=== PATIENT | male | born 1990 | race Hispanic/Latino ===

== ENCOUNTER 2016-10-16 03:11 | Emergency (ER) | payer OTHER ==
[2016-10-16] MEDS ORDERED: Iohexol 240 (50 ml) PO ONE (03:33)
--- NOTE | 2016-10-16 03:36 | C.PDOC ---
History Of Present Illness 26 y/o male c/o sudden onset RLQ abdominal pain that began tonight. Pain began after lifting a heavy object. Denies fever, chills, weakness, numbness, dysuria , vomiting, or any other complaints. Patient has no Hx of dysuria. Time Seen by Provider: 10/16/16 03:34 Chief Complaint (Nursing): Abdominal Pain History Per: Patient History/Exam Limitations: no limitations Onset/Duration Of Symptoms: Hrs, Sudden Onset Current Symptoms Are (Timing): Still Present Severity: Mild Location Of Pain/Discomfort: RLQ Radiation Of Pain To:: None Quality Of Discomfort: "Pain" Associated Symptoms: denies: Fever, Urinary Symptoms Alleviating Factors: None Recent travel outside of the [place]: No Additional History Per: Patient Past Medical History Reviewed: Historical Data, Nursing Documentation, Vital Signs Vital Signs: Last Vital Signs Temp 98.3 F 10/16/16 03:19 Pulse 90 10/16/16 03:19 Resp 18 10/16/16 03:19 BP 125/69 10/16/16 03:19 Pulse Ox 99 10/16/16 05:42 Family History: States: Unknown Family Hx - Social History Hx Alcohol Use: Yes Hx Substance Use: No - Immunization History Hx Tetanus Toxoid Vaccination: Yes Hx Influenza Vaccination: No Hx Pneumococcal Vaccination: No Review Of Systems Except As Marked, All Systems Reviewed And Found Negative. Constitutional: Negative for: Fever, Chills Gastrointestinal: Positive for: Abdominal Pain. Negative for: Vomiting Genitourinary: Negative for: Dysuria Neurological: Negative for: Weakness, Numbness Physical Exam - Physical Exam Appears: Non-toxic, No Acute Distress Skin: Warm, Dry Head: Atraumatic, Normacephalic Chest: Symmetrical Cardiovascular: Rhythm Regular Respiratory: Normal Breath Sounds, No Rales, No Rhonchi, No Wheezing Gastrointestinal/Abdominal: Soft, Tenderness (Localized tenderness to the RLQ), No Guarding, No Rebound Back: Normal Inspection, No CVA Tenderness Neurological/Psych: Oriented x3, Normal Speech, Normal Cognition ED Course And Treatment - Laboratory Results Result Diagrams: 10/16/16 03:45 10/16/16 03:45 O2 Sat by Pulse Oximetry: 99 (RA) Pulse Ox Interpretation: Normal - CT Scan/US CT Abd/Pel w/ Other Rad Studies (CT/US): Interpreted By Me, Read By Radiologist CT/US Interpretation: IMPRESSION: No acute findings. Medical Decision Making Medical Decision Making: Impression: 26 y/o male c/o sudden onset RLQ abdominal pain that began tonight. Plans: * Blood work up * Omnipaque * CT Abd/Pel w/ * IV Fluids * UA Disposition Counseled Patient/Family Regarding: Diagnosis - Disposition Referrals: [facility] [Outside] Disposition: HOME/ ROUTINE Disposition Time: 05:43 Condition: STABLE Prescriptions: Naproxen [Naprosyn Tab] 375 mg PO TIDPC #14 tab Instructions: Abdominal Pain (ED), Muscle Strain (ED) Forms: [employer] (Yi) - POA Present On Arrival: None - Clinical Impression Clinical Impression: Abdominal pain, Abdominal wall pain - Scribe Statement The provider has reviewed the documentation as recorded by the Scribe Tiara [email or web address] All medical record entries made by the Scribe were at my direction and personally dictated by me. I have reviewed the chart and agree that the record accurately reflects my personal performance of the history, physical exam, medical decision making, and the department course for this patient. I have also personally directed, reviewed, and agree with the discharge instructions and disposition.
[2016-10-16 03:41] LABS: RBC URINE < 1 /hpf (0-3); URINE BILIRUBIN NEGATIVE (NEGATIVE); URINE BLOOD NEGATIVE (NEGATIVE); URINE COLOR Yellow (YELLOW); URINE GLUCOSE (UA) NORMAL (Normal); URINE KETONE NEGATIVE (NEGATIVE); URINE LEUKOCYTE ESTERASE NEG Leu/uL (Negative); URINE PROTEIN NEGATIVE (NEGATIVE); URINE UROBILINOGEN NORMAL mg/dL (0.2-1.0); WBC URINE 1 /hpf (0-5)
[2016-10-16] MEDS ORDERED: Iohexol 240 (50 ml) ONE (03:46)
[2016-10-16 03:52] LABS: BASO % 0.3 % (0.0-2.0); EOS # 0.1 K/uL (0.0-0.7); EOS % 1.5 % (0.0-4.0); HEMATOCRIT 43.1 % (35.0-51.0); LYMPH # 2.9 K/uL (1.0-4.3); LYMPH % 41.4 % (20.0-40.0); MEAN CELL VOLUME 89.1 fL (80.0-94.0); MEAN CORPUSCULAR HEMOGLOBIN 30.6 pg (27.0-31.0); MEAN CORPUSCULAR HGB CONC 34.3 g/dL (33.0-37.0); MEAN PLATELET VOLUME 9.1 fL (7.2-11.7); MONO # 0.6 K/uL (0.0-0.8); MONO % 8.2 % (0.0-10.0); RED CELL DISTRIBUTION WIDTH 12.3 % (11.5-14.5); WHITE BLOOD COUNT 7.1 K/uL (4.8-10.8)
[2016-10-16 03:57] LABS: CHLORIDE 101 mmol/L (98-107); POTASSIUM 3.8 mmol/L (3.6-5.2); SODIUM 142 mmol/L (132-148)
[2016-10-16 03:59] LABS: BILIRUBIN,TOTAL 1.2 mg/dL (0.2-1.3); GFR AFRICAN-AMERICAN > 60
[2016-10-16 04:00] LABS: ALB/GLOB RATIO 1.5 (1.0-2.1); ALKALINE PHOSPHATASE 65 U/L (38-126); ALT/SGPT 38 U/L (21-72); AST/SGOT 19 U/L (17-59); BLOOD UREA NITROGEN 14 mg/dL (9-20); CALCIUM 9.2 mg/dl (8.6-10.4); CARBON DIOXIDE 25 mmol/L (22-30); GLUCOSE,RANDOM 94 mg/dL (75-110); TOTAL PROTEIN 6.9 g/dL (6.3-8.3)
[2016-10-16] MEDS ORDERED: Iodixanol 320 MG/ML 100 ML BOTTLE IV ONE (04:46)
[2016-10-16 05:59] VITALS: BP 125/81; PULSE 69; RESP 16; TEMP 97.9; O2SAT 100
--- NOTE | 2016-10-16 07:27 | CT ---
PROCEDURE: CT Abdomen and Pelvis with contrast HISTORY: RLQ abd pain/ tenderness COMPARISON: None. TECHNIQUE: Contrast dose: Visipaque 320, 100 cc Radiation dose: Total exam DLP = 465 mGy-cm. This CT exam was performed using one or more of the following dose reduction techniques: Automated exposure control, adjustment of the mA and/or kV according to patient size, and/or use of iterative reconstruction technique. FINDINGS: LOWER THORAX: Unremarkable. LIVER: Unremarkable. No gross lesion or ductal dilatation. GALLBLADDER AND BILE DUCTS: Unremarkable. PANCREAS: Unremarkable. No gross lesion or ductal dilatation. SPLEEN: Unremarkable. ADRENALS: Unremarkable. No mass. KIDNEYS AND URETERS: Unremarkable. No hydronephrosis. No solid mass. VASCULATURE: Unremarkable. No aortic aneurysm. BOWEL: Unremarkable. No obstruction. No gross mural thickening. APPENDIX: Normal appendix. PERITONEUM: Unremarkable. No free fluid. No free air. LYMPH NODES: Unremarkable. No enlarged lymph nodes. BLADDER: Unremarkable. REPRODUCTIVE: Unremarkable. BONES: No acute fracture. OTHER FINDINGS: None. IMPRESSION: Unremarkable contrast enhanced CT of the abdomen and pelvis. [facility] V rad preliminary report 10/16/2016.
== END 2016-10-16 06:00 | disposition home or self-care (01) ==
LOC: C.ER 03:11
DX: R10.31 Right lower quadrant pain (principal)
CPT/HCPCS: 74177; 80053; 81001; 83690; 85025; 99284; Q9966; Q9967